=== PATIENT | male | born 1965 | race Caucasian/White ===

== ENCOUNTER → 2021-01-18 | Outpatient (CLI) | payer BC ==
[~2021-01-18] MED LIST: CYMBALTA 60MG60 MG PO; GLUCOTROL XL10 MG PO; GLUCOTROL10 MG PO; JANUMET 1000 MG1 TA1 PO; JARDIANCE25 PO; LIPITOR 80MG80 MG PO; LYRICA 150MG C150 MG PO; TRICOR145 MG PO; ULTRAM 50MG TAB50 MG PO; VITAMIN B122500 MCG SL; VITAMIN C500 MG PO
== END ==
LOC: COL.RAD 12:08
DX: M19.011 Primary osteoarthritis, right shoulder (principal); M67.813 Other specified disorders of tendon, right shoulder

== ENCOUNTER → 2021-02-08 | Outpatient (CLI) | payer BC, OTHER | LOC: COL.RAD 11:45 | DX: R51.9 Headache, unspecified (principal) | CPT/HCPCS: A9585 ==

== ENCOUNTER 2021-02-10 05:33 | Day surgery (SDC) | payer BC ==
[~2021-02-10] VITALS: Ht 182.9 cm; Wt 99.3 kg
[2021-02-10 05:51] VITALS: BP 122/77; PULSE 87; TEMP 98.1
[2021-02-10] MEDS ORDERED: LIPITOR 80MG80 MG PO (06:01)
[2021-02-10] MEDS ORDERED: JARDIANCE25 PO (06:02)
[2021-02-10] MEDS ORDERED: GLUCOTROL XL10 MG PO (06:02)
[2021-02-10] MEDS ORDERED: ULTRAM 50MG TAB50 MG PO (06:03)
[2021-02-10] MEDS ORDERED: CYMBALTA 60MG60 MG PO (06:04)
[2021-02-10] MEDS ORDERED: JANUMET 1000 MG1 TA1 PO (06:04)
[2021-02-10] MEDS ORDERED: LYRICA 150MG C150 MG PO (06:05)
[2021-02-10] MEDS ORDERED: TRICOR145 MG PO (06:05)
[2021-02-10] MEDS ORDERED: VITAMIN C500 MG PO (06:06)
[2021-02-10] MEDS ORDERED: VITAMIN B122500 MCG SL (06:06)
[2021-02-10 08:45] VITALS: BP 103/63; PULSE 72; TEMP 97.5
--- NOTE | 2021-02-10 08:45 | NUR ---
The patient arrived back to [facility] from the recovery room at this time. The patient appears very drowsy but does arouse to his name. Post operative vital signs were started at this time. The patient's incision to his left congregational appears without redness or edema. Call light is within reach. Will continue to monitor the patient.
[2021-02-10 09:00] VITALS: BP 104/66; PULSE 71
--- NOTE | 2021-02-10 09:00 | NUR ---
The patient appears to be resting comfortably on the cart with his eyes closed at this time. Respirations even and unlabored. Vital signs appear stable. Call light remains within reach.
[2021-02-10 09:15] VITALS: BP 106/70; PULSE 72
--- NOTE | 2021-02-10 09:15 | NUR ---
The patient appears more alert and agrees to try some coffee, water and a muffin. Vital signs remain stable. Call light is within reach. Will continue to monitor the patient.
[2021-02-10 09:30] VITALS: BP 120/69; PULSE 73
--- NOTE | 2021-02-10 09:30 | NUR ---
The patient has finished the food and drink and appeared to tolerate it well. The patient requests to ambulate to the bathroom at this time. The patient did so using a steady gait and appeared to tolerate the activity well. The patient voided without difficulty. The nurse instructed the patient to get dressed and notify the staff when he is ready to review his discharge instructions.
--- NOTE | 2021-02-10 09:40 | NUR ---
Discharge instructions were reviewed with the patient at this time. He verbalized understanding and has no questions for the nurse at this time. The patient's IV to his right hand was removed and a pressure dressing was applied to the site. The patient is dressed and ready to be escorted out.
--- NOTE | 2021-02-10 09:50 | NUR ---
The patient was escorted out via wheelchair to a private vehicle by ALEX Jason. The patient's belongings and discharge paperwork were sent with him. The patient's is present to drive him home.
== END 2021-02-10 09:50 | disposition home or self-care (01) ==
LOC: SDCO 05:33
DX: R51.9 Headache, unspecified (principal); E78.5 Hyperlipidemia, unspecified; G47.33 Obstructive sleep apnea (adult) (pediatric); E11.9 Type 2 diabetes mellitus without complications; E78.00 Pure hypercholesterolemia, unspecified; F17.210 Nicotine dependence, cigarettes, uncomplicated; Z79.84 Long term (current) use of oral hypoglycemic drugs; Z79.899 Other long term (current) drug therapy; Z99.89 Dependence on other enabling machines and devices; Z80.0 Family history of malignant neoplasm of digestive organs; Z83.3 Family history of diabetes mellitus
CPT/HCPCS: J0690; J2250; J2405; J2704; J7120

== ENCOUNTER 2021-03-03 07:08 | Outpatient (CLI) | payer BC ==
[~2021-03-03] VITALS: Ht 182.9 cm; Wt 100.1 kg
[2021-03-03] VITALS (8 sets, daily range): BP systolic 107–131; BP diastolic 77–83; PULSE 68–73; TEMP 98.2
[~2021-03-03 07:08] MED LIST changes: -GLUCOTROL10 MG PO
[2021-03-03] MEDS ORDERED: CYMBALTA 60MG60 MG PO (07:23)
[2021-03-03] MEDS ORDERED: JARDIANCE25 PO (07:24)
[2021-03-03] MEDS ORDERED: GLUCOTROL10 MG PO (07:25)
[2021-03-03] MEDS ORDERED: JANUMET 1000 MG1 TA1 PO (07:26)
[2021-03-03] MEDS ORDERED: LYRICA 150MG C150 MG PO (07:27)
[2021-03-03] MEDS ORDERED: ULTRAM 50MG TAB50 MG PO (07:28)
[2021-03-03 09:22] LABS: GLUCOSE,CSF 94 mg/dL (40-70)
[2021-03-03 10:03] LABS: CSF APPEARANCE CLEAR; CSF COLOR COLORLESS; CSF MONONUCLEAR 100 % (70-100); CSF POLYMORPHONUCLEAR 0 % (0-6); CSF RBC 12 /mm3 (0-0)
[2021-03-08 12:59] LABS: ALBUMIN CSF 41.6 mg/dL (<=27.0)
[2021-03-08 14:05] LABS: CSF OLIG BD INTERPRETATION 0 bands (<2); SE OLIGOCLONAL BANDING 0 bands (())
[2021-03-09 07:41] LABS: ALBUMUN SERUM 4000 mg/dL (()); CSF SYNTHESIS RATE 1.65 mg/24 h (<=12); CSF-IGG INDEX 0.53 (<=0.85); IGG,SERUM 755 mg/dL (()); IGG/ALBUMIN SERUM 0.19 (<=0.40)
== END 2021-03-03 10:55 | disposition home or self-care (01) ==
LOC: COL.RAD 07:08
PROVIDERS: Psychiatry & Neurology Neurology
DX: I67.6 Nonpyogenic thrombosis of intracranial venous system (principal); Z96.89 Presence of other specified functional implants
CPT/HCPCS: Q9967

== ENCOUNTER 2023-03-23 09:13 | Day surgery (SDC) | payer BC, OTHER ==
[~2023-03-23] VITALS: Ht 182.9 cm; Wt 95.6 kg
[~2023-03-23 09:13] MED LIST changes: +DEPO-TESTOS200 MG/M1 IM; +GLUCOPHAGE500 MG/TAB PO; +GLUCOTROL10 MG PO; +OZEMPIC1 MG/0.71 SQ
[2023-03-23 09:33] VITALS: BP 11/72; PULSE 83; TEMP 97.6
[2023-03-23 12:20] VITALS: BP 92/64; PULSE 72; TEMP 96.7
[2023-03-23 12:35] VITALS: BP 98/68; PULSE 80
[2023-03-23 12:50] VITALS: BP 101/72; PULSE 72
--- NOTE | 2023-03-23 14:16 | NUR ---
1220-PATIENT ARRIVED VIA CART TO [facility], ALERT ON ARRIVAL. PT AMBULATED WITH ASSISTANCE TO RECLINER, WARM BLANKET PROVIDED. VITAL SIGNS TAKEN, VSS. PATIENT DENIES PAIN OR NAUSEA. REPORT OBTAINED FROM ALEX ELLIOTT. 1235-VSS. PATIENT TOLERATING PO INTAKE WELL, DENIES COMPLAINTS 1250-DISCHARGE PAPERWORK REVIEWED WITH PT, QUESTIONS INVITED. IV CATHETER DISCONTINUED, TIP INTACT. PRESSURE BANDAGE APPLIED. PATIENT DRESSED INDEPENDENTLY. 1258-PATIENT DISCHARGED HOME TO [facility] VIA WHEELCHAIR, ACCOMPANIED BY SPOUSE. ALL BELONGINGS AND DC PAPERWORK SENT WITH PT.
== END 2023-03-23 12:58 | disposition home or self-care (01) ==
LOC: SDCO 09:13
DX: Z12.11 Encounter for screening for malignant neoplasm of colon (principal); D12.3 Benign neoplasm of transverse colon; K63.5 Polyp of colon; F17.210 Nicotine dependence, cigarettes, uncomplicated; E66.9 Obesity, unspecified; G47.33 Obstructive sleep apnea (adult) (pediatric); Z80.0 Family history of malignant neoplasm of digestive organs
CPT/HCPCS: J2704; J3010; J7120